=== PATIENT | female | born 1990 | race Caucasian/White ===

== ENCOUNTER 2020-06-25 07:20 | Emergency (ER) | payer MEDICAID ==
[~2020-06-25] VITALS: Ht 162.6 cm; Wt 65.8 kg
[2020-06-25 07:36] VITALS: BP 126/88
[2020-06-25 08:48] VITALS: BP 130/89
== END 2020-06-25 08:48 | disposition home or self-care (01) ==
LOC: MED 07:20
DX: U07.1 COVID-19 (principal); F41.9 Anxiety disorder, unspecified
CPT/HCPCS: 71045; 99283

== ENCOUNTER 2020-08-29 08:54 | Emergency (ER) | payer MEDICAID ==
[~2020-08-29] VITALS: Ht 152.4 cm; Wt 59.0 kg
[2020-08-29 08:59] VITALS: BP 137/93
--- NOTE | 2020-08-29 09:04 | NUR ---
Pt taken to bed 12.
--- NOTE | 2020-08-29 09:10 | NUR ---
29 Y/O FEMALE C/O VAGINAL BLEEDING. LMP 07/12/20, 5 WEEKS WITH POSITIVE PREG TEST LAST WEEK. BLEEDING STARTED THIS MORNING 0400 WITH NO CRAMPING, PATIENT STATES INITIAL BLEEDING WAS BRIGHT RED, HEAVY AND SHE BEGAN SEEING CLOTS. PT DENIES PAIN, N/V/D. [id number]. FIRST WAS VAGINAL DELIVERY. PT IS A/O X4 WITH EVEN AND UNLABORED RESPIRATIONS. PT LAYING IN BED WITH BED IN LOWEST POSITION, BRAKES LOCKED, X1 SIDERAIL UP. NO PMH NKDA
[2020-08-29 09:30] LABS: BASOPHILS # (AUTO) 0.1 K/uL (0.00-0.22); BASOPHILS % (AUTO) 0.5 % (0.0-2.0); EOSINOPHILS # (AUTO) 0.3 K/uL (0-0.4); HEMOGLOBIN 13.6 g/dL (12.0-16.0); LYMPHOCYTES # (AUTO) 2.7 K/uL (2.5-16.5); LYMPHOCYTES % (AUTO) 29.2 % (20.5-51.1); MEAN CORPUSCULAR HEMOGLOBIN 33 pg (27-31); MEAN CORPUSCULAR HGB CONC 35 g/dL (33-37); MEAN CORPUSCULAR VOLUME 93.4 fL (80-94); MONOCYTES # (AUTO) 0.9 K/uL (0.8-1.0); MONOCYTES % (AUTO) 9.8 % (1.7-9.3); NEUTROPHILS # (AUTO) 5.3 K/uL (1.8-7.7); NEUTROPHILS % (AUTO) 57.5 % (42.2-75.2); PLATELET COUNT (AUTO) 323 K/uL (140-450); RED BLOOD CELL COUNT(AUTO) 4.17 MIL/uL (4.20-5.40); WHITE BLOOD COUNT (AUTO) 9.3 K/uL (4.8-10.8)
--- NOTE | 2020-08-29 09:30 | NUR ---
US AT BEDSIDE
[2020-08-29 09:48] LABS: BILIRUBIN,URINE NEGATIVE (NEGATIVE); BLOOD, URINE 3+ (NEGATIVE); COLOR,URINE YELLOW (YELLOW); LEUKOCYTE ESTERASE ,URINE NEGATIVE (NEGATIVE); NITRITE, URINE NEGATIVE (NEGATIVE); UGLUCOSE NEGATIVE (NEGATIVE)
[2020-08-29 10:56] LABS: APPEARANCE,URINE SLIGHTLY CLOUDY (CLEAR); WBC,URINE 0-5 /HPF (0-5)
[2020-08-29 11:49] VITALS: BP 125/90
--- NOTE | 2020-08-29 11:49 | NUR ---
Patient discharged with v/s stable. Written and verbal after care instructions given and explained. Patient verbalized understanding. Ambulatory with steady gait. All questions addressed prior to discharge. Advised to follow up with PMD.
== END 2020-08-29 11:49 | disposition home or self-care (01) ==
LOC: MED 08:54
DX: O20.0 Threatened abortion (principal); Z3A.01 Less than 8 weeks gestation of pregnancy
CPT/HCPCS: 36415; 76817; 81001; 81025; 84702; 85025; 86900; 86901; 99284

== ENCOUNTER 2020-09-11 08:51 | Emergency (ER) | payer MEDICAID ==
[~2020-09-11] VITALS: Ht 152.4 cm; Wt 59.0 kg
[2020-09-11 08:58] VITALS: BP 105/67
--- NOTE | 2020-09-11 09:05 | NUR ---
PATIENT AMBULATED TO BED 06
--- NOTE | 2020-09-11 09:05 | NUR ---
29Y F c/c bright red vaginal bleeding that looked like a period, this is her second episode first time occured x2 weeks ago. Pt denies foul vaginal odor, abd pain, N/V/D, edema. Reports feeling really tired but not light-headed PMH: Denies NKA Rx: denies
--- NOTE | 2020-09-11 09:05 | NUR ---
Dr. Burns at pt bedside for further evaluation.
--- NOTE | 2020-09-11 09:55 | NUR ---
KRISSYD evaluating pt at bedside. Addendum: 09/11/20 at 0956 by [email or web address] lab at bedside.
[2020-09-11 09:56] LABS: BASOPHILS % (AUTO) 0.4 % (0.0-2.0); EOSINOPHILS # (AUTO) 0.2 K/uL (0-0.4); EOSINOPHILS % (AUTO) 2.5 % (0.0-4.0); HEMATOCRIT 35.6 % (36-48); HEMOGLOBIN 12.8 g/dL (12.0-16.0); LYMPHOCYTES # (AUTO) 2.1 K/uL (2.5-16.5); LYMPHOCYTES % (AUTO) 27.2 % (20.5-51.1); MEAN CORPUSCULAR HEMOGLOBIN 33 pg (27-31); MEAN CORPUSCULAR HGB CONC 36 g/dL (33-37); MEAN CORPUSCULAR VOLUME 91.9 fL (80-94); MONOCYTES # (AUTO) 0.7 K/uL (0.8-1.0); MONOCYTES % (AUTO) 8.8 % (1.7-9.3); NEUTROPHILS # (AUTO) 4.6 K/uL (1.8-7.7); NEUTROPHILS % (AUTO) 61.1 % (42.2-75.2); PLATELET COUNT (AUTO) 298 K/uL (140-450); RED BLOOD CELL COUNT(AUTO) 3.88 MIL/uL (4.20-5.40); RED CELL DISTRIBUTION WIDTH 12.3 % (11.6-13.7); WHITE BLOOD COUNT (AUTO) 7.6 K/uL (4.8-10.8)
--- NOTE | 2020-09-11 10:00 | NUR ---
US at bedside.
[2020-09-11 10:03] LABS: BILIRUBIN,URINE NEGATIVE (NEGATIVE); BLOOD, URINE 3+ (NEGATIVE); COLOR,URINE YELLOW (YELLOW); LEUKOCYTE ESTERASE ,URINE NEGATIVE (NEGATIVE); NITRITE, URINE NEGATIVE (NEGATIVE); UGLUCOSE NEGATIVE (NEGATIVE)
[2020-09-11 10:14] LABS: APPEARANCE,URINE SLIGHTLY HAZY (CLEAR)
[2020-09-11 10:15] LABS: RBC,URINE 0-5 /HPF (0-5); WBC,URINE 0-5 /HPF (0-5)
[2020-09-11 11:32] VITALS: BP 110/72
== END 2020-09-11 11:31 | disposition home or self-care (01) ==
LOC: MED 08:51
DX: N93.9 Abnormal uterine and vaginal bleeding, unspecified (principal)
CPT/HCPCS: 36415; 76817; 81001; 81025; 84702; 85025; 99284

== ENCOUNTER 2020-10-08 10:30 | Emergency (ER) | payer MEDICAID ==
[~2020-10-08] VITALS: Ht 152.4 cm; Wt 57.2 kg
--- NOTE | 2020-10-08 10:53 | NUR ---
Patient ambulated to bed 6. RN evaluating the patient at bedside.
[2020-10-08 10:56] VITALS: BP 100/73
--- NOTE | 2020-10-08 10:58 | NUR ---
30 y.o female presents to the ed for a recheck after a miscarriage 1x month ago. pt reports ultrasound was done and was told pt still has debris left and can see the [facility] in November. pain. AAOx4. VSS. PMH: N/A Allergies: NKA
--- NOTE | 2020-10-08 11:02 | NUR ---
Dr. Membreno is evaluating the patient at bedside.
--- NOTE | 2020-10-08 11:14 | NUR ---
lab at bedside for blood collection
--- NOTE | 2020-10-08 11:20 | NUR ---
pt ambulated to the bathroom for urine collection
--- NOTE | 2020-10-08 11:24 | NUR ---
US tech at bedside for exam.
--- NOTE | 2020-10-08 11:26 | NUR ---
urine collected and sent to lab, received by [facility]
[2020-10-08 11:35] LABS: BASOPHILS % (AUTO) 0.4 % (0.0-2.0); EOSINOPHILS # (AUTO) 0.2 K/uL (0-0.4); EOSINOPHILS % (AUTO) 2.6 % (0.0-4.0); HEMATOCRIT 38.9 % (36-48); HEMOGLOBIN 13.5 g/dL (12.0-16.0); LYMPHOCYTES # (AUTO) 1.9 K/uL (2.5-16.5); LYMPHOCYTES % (AUTO) 24.1 % (20.5-51.1); MEAN CORPUSCULAR HEMOGLOBIN 32 pg (27-31); MEAN CORPUSCULAR HGB CONC 35 g/dL (33-37); MEAN CORPUSCULAR VOLUME 93.2 fL (80-94); MONOCYTES # (AUTO) 0.7 K/uL (0.8-1.0); MONOCYTES % (AUTO) 9.3 % (1.7-9.3); NEUTROPHILS # (AUTO) 4.9 K/uL (1.8-7.7); NEUTROPHILS % (AUTO) 63.6 % (42.2-75.2); PLATELET COUNT (AUTO) 317 K/uL (140-450); RED BLOOD CELL COUNT(AUTO) 4.18 MIL/uL (4.20-5.40); RED CELL DISTRIBUTION WIDTH 11.8 % (11.6-13.7); WHITE BLOOD COUNT (AUTO) 7.7 K/uL (4.8-10.8)
[2020-10-08 11:35] LABS: APPEARANCE,URINE HAZY (CLEAR); BILIRUBIN,URINE NEGATIVE (NEGATIVE); BLOOD, URINE 1+ (NEGATIVE); COLOR,URINE YELLOW (YELLOW); LEUKOCYTE ESTERASE ,URINE NEGATIVE (NEGATIVE); NITRITE, URINE POSITIVE (NEGATIVE); PH,URINE 7.5 (5.0-9.0); UGLUCOSE NEGATIVE (NEGATIVE)
[2020-10-08 11:49] LABS: RBC,URINE 0-5 /HPF (0-5); WBC,URINE 0-5 /HPF (0-5)
[2020-10-08 13:30] VITALS: BP 100/73
== END 2020-10-08 13:31 | disposition home or self-care (01) ==
LOC: MED 10:30
DX: O00.90 Unspecified ectopic pregnancy without intrauterine pregnancy (principal); O03.4 Incomplete spontaneous abortion without complication
CPT/HCPCS: 36415; 76817; 81001; 84702; 85025; 86900; 86901; 99284